=== PATIENT | male | born 1980 | race Caucasian/White ===

== ENCOUNTER 2019-03-09 22:20 | Emergency (ER) | payer MEDICAID, OTHER ==
[~2019-03-09] VITALS: Ht 165.1 cm; Wt 75.7 kg
[2019-03-09 22:35] VITALS: BP 144/89
--- NOTE | 2019-03-09 22:56 | NUR ---
FRIEND AT BEDSIDE
== END 2019-03-09 23:18 | disposition home or self-care (01) ==
LOC: ER 22:20
DX: M54.12 Radiculopathy, cervical region (principal)

== ENCOUNTER 2019-03-15 19:01 | Emergency (ER) | payer OTHER ==
[~2019-03-15] VITALS: Ht 165.1 cm; Wt 80.3 kg
[2019-03-15 19:59] VITALS: BP 133/78
[2019-03-15] MEDS ORDERED: KETOROLAC TROMETHAMINE INJ 30 MG/ML VIAL ONE (20:17)
[2019-03-15] MEDS ORDERED: KETOROLAC TROMETHAMINE INJ 60 MG/2 ML VIAL IM ONE (20:30)
== END 2019-03-16 02:09 | disposition home or self-care (01) ==
LOC: ER 19:02
DX: M54.12 Radiculopathy, cervical region (principal)
CPT/HCPCS: 96372; 99283; J1885